=== PATIENT | female | born 1975 | race Caucasian/White ===

== ENCOUNTER 2022-03-05 17:40 | Emergency (ER) | payer BC, SELFPAY ==
[2022-03-05 17:48] VITALS: BP 146/79; PULSE 115; RESP 16; TEMP 36.2; O2SAT 100
--- NOTE | 2022-03-05 18:04 | ED.EAR ---
HPI - Ear Problem General Chief complaint: Ear Stated complaint: Ear Pain Time Seen by Provider: 03/05/22 18:11 Source: patient and RN notes reviewed Mode of arrival: ambulatory Limitations: no limitations History of Present Illness HPI Narrative: 46 year old female presents with concern for ear pain. Reports she has had ear pain for 5-6 days, reports she had sinus congestion and pressure prior to that, she took a Medrol Dosepak without relief. MD Complaint: ear pain Related Data Home Medications Medication Instructions Recorded Confirmed nebivolol 5 mg tablet (Bystolic) 5 mg PO DAILY 01/28/19 03/18/19 Allergies Allergy/AdvReac Type Severity Reaction Status Date / Time Sulfa (Sulfonamide Allergy Mild Unresponsiv Verified 03/18/19 15:20 Antibiotics) e latex Allergy Unknown HIVES Verified 03/18/19 15:20 Review of Systems Review of Systems: CONSTITUTIONAL: Denies malaise, chills, sweats, or fever. EYES: Denies visual changes, redness, or discharge. ENT: Denies rhinorrhea, congestion, sinus pain, and sore throat. Reports bilateral ear pain CARDIOVASCULAR: Denies chest pain, palpitations, or edema. RESPIRATORY: Denies cough. Denies dyspnea. GASTROINTESTINAL: Denies abdominal pain, nausea, vomiting, diarrhea SKIN: Denies rash or itching. MUSCULOSKELETAL: Denies myalgia. NEUROLOGIC: Denies headache. All systems reviewed & are unremarkable except as noted in HPI and below PMFSH Past Medical History Medical History (Updated 03/05/22 @ 18:14 by Roxana Reagan NP) Anxiety Breast cancer Chemotherapy adverse reaction Depression GERD (gastroesophageal reflux disease) Hypertension Migraine aura without headache Tachycardia Tubal ligation evaluation Urinary tract infection Wears glasses Surgical History Surgical History History of lumpectomy of both breasts History of orthopedic surgery History of partial hysterectomy Previous section Social History Social History Social History: Smoking Opioid use Alcohol use Comments At time of signature, agree with nursing past medical, surgical, social and family history. There is no relevant family history pertinent to the presenting complaint Exam Narrative: GENERAL: Well-appearing, well-nourished, and in no acute distress. HEAD: Normocephalic EYES: PERRLA, conjunctivae clear ENT: Nares clear, turbinates edematous. Mucous membranes moist. TM erythematous and bulging bilaterally; no tragal tenderness. Oropharynx not erythematous without lesions. Tonsils not enlarged and without exudate, no drooling, no hoarseness, no trismus, uvula midline. NECK: Supple. No lymphadenopathy CHEST: Clear to auscultation, breath sounds equal. No wheezing, rhonchi, rales, or stridor. No respiratory distress, speaks in full sentences. HEART: Regular rate and rhythm. No murmur heard. SKIN: Warm, dry, no rash. NEURO: Alert and oriented x3. PSYCH: Normal mood and affect Course Course Emergency Course: Patient is aware of diagnosis, understands and agrees to treatment plan. Anticipatory guidance given. Patient agrees to follow-up as directed and is aware of reasons to seek care at the emergency department. Portions of this record may have been created with voice recognition software Level of Care: Express Care Visit Vital Signs Vital signs: Vital Signs Temperature 97.2 F L 03/05/22 17:48 Pulse Rate 115 H 03/05/22 17:48 Respiratory Rate 16 03/05/22 17:48 Blood Pressure 146/79 H 03/05/22 17:48 Pulse Oximetry 100 03/05/22 17:48 Oxygen Delivery Room Air 03/05/22 17:48 Temperature 97.2 F L 03/05/22 17:48 Pulse Rate 115 H 03/05/22 17:48 Respiratory Rate 16 03/05/22 17:48 Blood Pressure 146/79 H 03/05/22 17:48 Pulse Oximetry 100 03/05/22 17:48 Oxygen Delivery Room Air 03/05/22 17:48 Reviewed. Medical Decision Making MDM
== END 2022-03-05 18:23 | disposition home or self-care (01) ==
PROVIDERS: Emergency Provider Nurse Practitioner; PCP Family Medicine
DX: J32.9 Chronic sinusitis, unspecified (principal); H66.003 Acute suppurative otitis media without spontaneous rupture of ear drum, bilateral; I10 Essential (primary) hypertension; Z85.3 Personal history of malignant neoplasm of breast
CPT/HCPCS: 99213; G0463

== ENCOUNTER 2022-03-11 10:24 | Emergency (ER) | payer BC, SELFPAY ==
[2022-03-11 10:32] VITALS: BP 131/80; PULSE 77; RESP 16; TEMP 35.9; O2SAT 99
--- NOTE | 2022-03-11 13:04 | ED.EAR ---
HPI - Ear Problem General Chief complaint: Ear Stated complaint: double ear infection Time Seen by Provider: 03/11/22 12:55 Source: patient Mode of arrival: ambulatory Limitations: no limitations History of Present Illness HPI Narrative: 46 year old female who presents to [facility] with complaints of bilateral ear pain with right ear greater than left. Patient was seen in clinic on the 05 of March and treated for sinus infection with Augmentin. Patient reports that sinus congestion and pressure have improved. Patient reports that she has been taking Flonase, Tawanna and Benadryl and also some Ibuprofen for her ear pain without resolution. Patient denies any fevers, chills or body aches. MD Complaint: ear pain Location: bilateral Severity: severe Discharge from ear: Reports no Treatment prior to arrival: other (Flonase, Benadryl, allergy medication) Related Data Home Medications Medication Instructions Recorded Confirmed nebivolol 5 mg tablet (Bystolic) 5 mg PO DAILY 01/28/19 03/18/19 Allergies Allergy/AdvReac Type Severity Reaction Status Date / Time Sulfa (Sulfonamide Allergy Mild Unresponsiv Verified 03/18/19 15:20 Antibiotics) e latex Allergy Unknown HIVES Verified 03/18/19 15:20 Review of Systems Review of Systems: CONSTITUTIONAL: Denies malaise, chills, sweats, or fever. EYES: Denies visual changes, redness, or discharge. ENT: Reports rhinorrhea, congestion, mild sinus pain,bilateral otalgia no sore throat. CARDIOVASCULAR: Denies chest pain, palpitations, or edema. RESPIRATORY: Reports cough.? Denies dyspnea. GASTROINTESTINAL: Denies abdominal pain, nausea, vomiting, diarrhea SKIN: Denies rash or itching. MUSCULOSKELETAL: Denies myalgia. NEUROLOGIC: Denies headache. All systems reviewed & are unremarkable except as noted in HPI and below PMFSH Past Medical History Medical History Anxiety Breast cancer Chemotherapy adverse reaction Depression GERD (gastroesophageal reflux disease) Hypertension Migraine aura without headache Tachycardia Tubal ligation evaluation Urinary tract infection Wears glasses Surgical History Surgical History History of lumpectomy of both breasts History of orthopedic surgery History of partial hysterectomy Previous section Social History Social History (Updated 03/17/22 @ 21:41 by Kristina Lyle NP) Smoking status: Current every day smoker Tobacco type: cigarettes Alcohol intake: current Alcohol use details: social Substance use type: opiates Last use: for migraines Comments At time of signature, agree with nursing past medical, surgical, social and family history. There is no relevant family history pertinent to the presenting complaint Exam Narrative: GENERAL: Well-appearing, well-nourished, and in no acute distress. HEAD: Normocephalic EYES: PERRLA, conjunctivae clear ENT: Nares clear, turbinates edematous and erythematous, clear discharge. Mucous membranes moist. TM bilaterally red and bulging with stated ear pain bilaterally; no tragal tenderness. Oropharynx erythematous without lesions. Tonsils not enlarged and without exudate, no drooling, no hoarseness, no trismus, uvula midline. NECK: Supple. No lymphadenopathy CHEST: Clear to auscultation, breath sounds equal. No wheezing, rhonchi, rales, or stridor. No respiratory distress, speaks in full sentences. HEART: Regular rate and rhythm. No murmur heard. SKIN: Warm, dry, no rash. NEURO: Alert and oriented x3. PSYCH: Normal mood and affect Course Course Emergency Course: Patient is aware of diagnosis, understands and agrees to treatment plan.? Anticipatory guidance given.? Patient agrees to follow-up as directed and is aware of reasons to seek care at the emergency department. Portions of this record may have been created with voice
== END 2022-03-11 13:16 | disposition home or self-care (01) ==
PROVIDERS: Emergency Provider Registered Nurse; PCP Family Medicine
DX: H65.03 Acute serous otitis media, bilateral (principal); F17.210 Nicotine dependence, cigarettes, uncomplicated; K21.9 Gastro-esophageal reflux disease without esophagitis; I10 Essential (primary) hypertension; Z85.3 Personal history of malignant neoplasm of breast; Z90.711 Acquired absence of uterus with remaining cervical stump
CPT/HCPCS: 99213; G0463

== ENCOUNTER 2022-08-27 15:52 | Outpatient (CLI) | payer BC, SELFPAY ==
--- NOTE | ~2022-08-27 | CT_ITS ---
EXAMINATION: CT abdomen pelvis wo con DATE: 08/27/2022 16:05 INDICATION: Left upper quadrant abdominal tenderness. Epigastric abdominal pain. TECHNIQUE: Computed tomography (CT) of the abdomen and pelvis was performed without intravenous contr ast. Automated exposure control and iterative reconstruction technique were employed. The dose-length product was 1035.28 mGy-cm. COMPARISON: None. FINDINGS: The visualized portions of the lung bases demonstrate mild atelectasis. No pleural effusion . The heart size is normal. No pericardial effusion. There is a small sliding hiatal hernia. There is diffuse hepatic steatosis. The gallbladder, spleen, pancreas, adrenal glands, and kidneys are normal . There is no urolithiasis. There is a 3.3 cm cyst in right ovary, likely a follicular cyst. There ar e no dilated loops of bowel. The appendix is normal. There are no pathologically enlarged lymph nodes . There is no free intraperitoneal fluid. There is mild thoracic and lumbar spondylosis. IMPRESSION: 1. Small sliding hiatal hernia. 2. Diffuse hepatic steatosis. Reviewed, dictated and finalized at location A.
== END 2022-08-27 15:53 ==
PROVIDERS: PCP Family Medicine; Visit Provider Family Medicine
DX: R10.812 Left upper quadrant abdominal tenderness (principal); K44.9 Diaphragmatic hernia without obstruction or gangrene; K76.0 Fatty (change of) liver, not elsewhere classified
CPT/HCPCS: 74176